=== PATIENT | male | born 1955 | race Caucasian/White ===

== ENCOUNTER → 2016-11-30 | Outpatient (CLI) | payer MEDICARE, OTHER ==
[~2016-11-30] MED LIST: AMARYL PO; AMLODIPINE BESY10 MG PO; CALCITRIOL0.25 MCG PO; COATED ASPIRIN325 M1 PO; CORDARONE200 M1 PO; COREG PO; COREG6.25 MG PO; COUMADIN5 MG PO; CRESTOR5 MG PO; HYDRALAZINE HCL25 MG PO; HYDRALAZINE HCL50 MG PO; ISORDIL PO; KOMBIGLYZE XR1 EAC2 PO; LASIX PO; METFORMIN PO; NORVASC PO; NOVOLIN 70/30 V10 M1 SQ; NOVOLIN 70/30 V10 M1 SUBQ; NOVOLIN 70100 UNITS/ SUBQ; NOVOLOG100 U/M2 SQ; PACERONE PO; POLY-IRON PO; RENVELA800 MG PO; SIMVASTATIN40 MG PO; SODIUM BICARBO650 MG PO; SYMBICORT INH; TOPROL XL PO; TRADJENTA5 MG PO; ZESTRIL2.5 MG PO
--- NOTE | ~2016-11-30 | ST ---
Unit #: [id number] #: [id number] Patient: YUKI HU [id number] [address] [address] [id number] O MR#: [id number] NAME: YUKI HU. : 1955 SEX: M STUDY DATE/TIME: 11/30/2016 UNIT: [facility] ROOM: STUDY DESCRIPTION: Walking Lexiscan stress test Attending Physician: Elder Dueñas M.D. Referring Physician: Elder Dueñas M.D. Primary Care Physician: Vladimir Davis M.D. CARDIOLOGY REPORT PROCEDURE PERFORMED Walking Lexiscan Cardiolite stress test. REPORT Baseline EKG - Normal sinus rhythm with ventricular rate 60 beats per minute, first-degree AV block, probable Q wave in V1, left ventricular hypertrophy, slow R wave progression. Patient attempted to do an exercise Cardiolite stress test but was unable to tolerate the speed of the treadmill, so we had to change to a walking Lexiscan. Lexiscan was injected, followed by Cardiolite in the first minute of the walking portion. The patient became very weak, lightheaded and nauseated. He had to sit down for the remainder of the stress portion. The patient denied any chest pain. No palpitations. His blood pressure decreased to 90/60 mmHg and later increased to 113/66 mmHg. At the end of the recovery phase, the patient's symptoms had resolved and he had returned to baseline. EKG during the test was equivocal to baseline. No acute ischemic changes. Maximum heart rate response was 80 beats per minute. Maximum blood pressure response was 140/80 mmHg. Cardiolite was injected after Lexiscan. Radionuclide tests pending. Please correlate with nuclear images. Dictated by... Kaylene Romero A.P.R.NChing for Elder Dueñas M.D. CEC/db TD: 11/30/2016 10:45 JOB #: [id number] Unit #: [id number] #: [id number] Patient: YUKI HU CARDIOLOGY REPORT Page 1 of 1 X Kaylene Romero APRN CARDIOLOGY REPORT
--- NOTE | ~2016-11-30 | ST ---
Unit #: [id number] #: [id number] Patient: YUKI HU [id number] [address] [address] [id number] O MR#: [id number] NAME: YUKI HU : 1955 SEX: M STUDY DATE/TIME: 11/30/2016 UNIT: [facility] ROOM: STUDY DESCRIPTION: Stress ecg Attending Physician: Elder Dueñas M.D. Referring Physician: Elder Dueñas M.D. Primary Care Physician: Vladimir Davis M.D. CARDIOLOGY REPORT EXAM Stress ECG. FINDINGS Result text under nuclear order number. Please see this order for result text. Dictated by... Michael Bird M.D. PJLorin/ancelmo TD: 11/30/2016 13:37 JOB #: [id number] CARDIOLOGY REPORT Page 1 of 1 X Michael Bird MD CARDIOLOGY REPORT
--- NOTE | ~2016-11-30 | TH ---
Unit #: [id number] #: [id number] Patient: YUKI HU [id number] [address] [address] [id number] O MR#: [id number] NAME: YUKI HU : 1955 SEX: M STUDY DATE/TIME: 11/30/2016 UNIT: [facility] ROOM: STUDY DESCRIPTION: Stress nuclear Attending Physician: Elder Dueñas M.D. Referring Physician: Elder Dueñas M.D. Primary Care Physician: Vladimir Davis M.D. CARDIOLOGY REPORT EXAM Stress nuclear and ECG combined. SUMMARY The patient exercised on on a Chi protocol and received Tc-99m Cardiolite, 10.23 and 29.9 mCi at rest and stress respectively. The patient also received Lexiscan. The patient walked at 1.7 MPH at 10% grade, typical for stage one of the Chi protocol. FINDINGS The patient's heart rate increased from 60 to 79 and blood pressure decreased from 140/80 to 90/60. The rest and stress ECG showed no diagnostic ST shifts, no dysrhythmias and no heart block. Perfusion images demonstrate severe decreased perfusion in the inferior wall at rest, slightly filling with stress. There were no new perfusion defects in the inferior wall with stress. The ventricle was enlarged. RV appears large. There are no other perfusion defects either at rest or stress in the anterior, lateral or septal scott. Planar images show no significant patient motion either at rest or stress. RV appears large. No significant lung uptake. Moderate to severe LV enlargement. Gated perfusion wall motion analysis demonstrates moderate hypokinesis of the inferior wall with end-diastolic volume 192 mL. Quantitative ejection fraction is 53%. Qualitatively, ejection fraction appears to be closer to 40%. Summed stress score is 2. Summed difference score is one. IMPRESSION 1. 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 2. Very large ventricle. 3. Mildly reduced ejection fraction. 4. Normal Lexiscan and exercise stress ECG. Dictated by... Michael Bird M.D. Bertin TD: 11/30/2016 13:29 JOB #: [id number] Unit #: [id number] #: [id number] Patient: YUKI HU CARDIOLOGY REPORT Page 1 of 1 X Michael Bird MD CARDIOLOGY REPORT
== END | disposition home or self-care (01) ==
LOC: CNUC 08:20
DX: Z01.810 Encounter for preprocedural cardiovascular examination (principal); I48.91 Unspecified atrial fibrillation; E11.9 Type 2 diabetes mellitus without complications; I10 Essential (primary) hypertension; I25.5 Ischemic cardiomyopathy; I21.3 ST elevation (STEMI) myocardial infarction of unspecified site; I51.7 Cardiomegaly
CPT/HCPCS: 78452; 93017; A9500; J2785